=== PATIENT | female | born 1995 | race Caucasian/White ===

== ENCOUNTER 2017-02-08 23:21 | Emergency (ER) | payer OTHER ==
[2017-02-08 22:54] LABS: INFLUENZA A NEG (NEG); INFLUENZA B NEG (NEG)
[~2017-02-08 23:21] MED LIST: ACETAMINOPHEN; BC PILL PO; CIPRO PO; CLARITIN10 M3; COLESTID PO; DEXILANT60 MG PO; FLEXERIL10 MG PO; FLONASE 0.05% N16 G1 INH; LOMOTIL TABLET1 TAB PO; MOTRIN600 M2 PO; NO MEDICATIONS; PRENATAL1 TA1; PYRIDIUM100 MG PO; ROBAXIN 750750 M1 PO; SUDAFED PO; TESSALON PERLES PO; TYLENOL #3 PO; TYLENOL/CODEINE1 TA1 PO; ZANTAC; ZITHROMAX PO; ZOFRAN PO
== END 2017-02-08 23:57 | disposition home or self-care (01) ==
LOC: SED 23:21
PROVIDERS: Emergency Medicine
DX: O98.512 Other viral diseases complicating pregnancy, second trimester (principal); B34.9 Viral infection, unspecified; Z88.8 Allergy status to other drugs, medicaments and biological substances; Z91.041 Radiographic dye allergy status
CPT/HCPCS: 87651; 87804; 99284